=== PATIENT | female | born 1985 | race Caucasian/White ===

== ENCOUNTER → 2021-02-06 14:12 | Outpatient (CLI) | payer OTHER, MEDICAID, SELFPAY ==
[2021-02-06 14:42] LABS: COVID19 -Nasal RAPID Negative (Negative)
== END ==
PROVIDERS: Visit Provider Physician Assistant
DX: R05.9 Cough, unspecified (principal); R09.81 Nasal congestion; R51.9 Headache, unspecified
CPT/HCPCS: 87635